=== PATIENT | female | born 1990 | race Caucasian/White ===

== ENCOUNTER 2023-11-08 09:31 | Emergency (ER) | payer OTHER, SELFPAY ==
--- NOTE | 2023-11-08 09:36 | ED.URI ---
HPI - URI/Sore Throat General Chief Complaint: Upper Respiratory Infection Stated Complaint: cough,congestion,sorethroat Time Seen by Provider: 11/08/23 09:50 Source: patient, RN notes reviewed and old records reviewed Mode of arrival: ambulatory Limitations: no limitations History of Present Illness HPI Narrative: 33-year-old female presents to the [facility] with complaints of cough, congestion and sore throat for 6 days. Reports taking Tylenol and NyQuil. Patient reports low-grade fever of 99. Onset (ago): day(s) (6) Treatments prior to arrival: cold medicine Related Data Home Medications Medication Instructions Recorded Confirmed No Home Medications 11/08/23 11/08/23 Allergies Allergy/AdvReac Type Severity Reaction Status Date / Time No Known Allergies Allergy Unverified 11/08/23 09:53 Review of Systems Review of Systems: All systems reviewed & are unremarkable except as noted in HPI and below Constitutional: Constitutional: Reports no additional constitutional complaints Eyes: Eyes: Reports no additional eye complaints ENT: Reports as per HPI and Reports sore throat Cardiovascular: Cardiovascular: Reports no additional cardiovascular complaints, Denies chest pain and Denies dyspnea Respiratory: Respiratory: Reports as per HPI, Denies chest congestion, Reports cough and Denies dyspnea Gastrointestinal: Gastrointestinal: Reports no additional gastrointestinal complaints, Denies abdominal pain, Denies nausea and Denies vomiting Musculoskeletal: Musculoskeletal: Reports no additional musculoskeletal complaints Integumentary/Breasts: Skin/Breast: Reports system reviewed and no additional complaints, except as docu Neurologic: Reports system reviewed and no additional complaints, except as documented Psychiatric: Psychiatric: Reports no additional psychiatric complaints Allergic/Immunologic: Allergic/Immunologic: Reports no additional allergic/immunologic complaints [facility] Past Medical History Medical History Elevated LDL cholesterol level Onychomycosis Family History Family History Other Hypertension Social History Social History Smoking status: Never smoker Second hand tobacco smoke exposure: No Alcohol intake: current Alcohol use details: 1 beer every other week, maybe Substance use: never Substance use type: does not use Comments At the time of my signature, I reviewed and agree with the nursing past medical, surgical, social, and family history. There is no relevant family history pertinent to the patient complaint. Exam Const: General: cooperative, healthy appearing, comfortable, no acute distress, well developed, alert and well nourished Nutritional Appearance: well nourished Orientation/consciousness: patient oriented x3 Limitations: no limitations HENMT: Head: normal to inspection Ears: hearing grossly normal bilaterally, external ears normal, TM's normal bilaterally, EAC's normal, mastoids normal and no periauricular adenopathy Face/Nose/Sinus: Normal external nose present, Normal nares present, Normal nasal mucous membranes and turbinates present, normal facial exam, sinuses nontender and face symmetric Face and sinus: normal facial exam and face symmetric Mouth: Yes Normal oral and palatal mucosa present, Yes lip normal and Yes tongue normal Throat: tonsils normal, uvula midline, postnasal drainage and no uvular edema Eyes: General: appearance normal, both eyes and all related structures Alignment and Position: alignment normal Periorbital: periorbital findings normal Pupils: Equal, round and reactive pupils present EOM: EOMs intact bilaterally Neck: Neck: normal visual inspection, full ROM, no lymphadenopathy and no meningeal signs Chest: Chest palpation & inspection: normal inspection of the glenda
[2023-11-08 09:48] VITALS: BP 108/82; PULSE 87; RESP 16; TEMP 36.8; O2SAT 99
== END 2023-11-08 10:30 | disposition home or self-care (01) ==
PROVIDERS: Emergency Provider Nurse Practitioner; PCP Internal Medicine
DX: R09.82 Postnasal drip (principal); J06.9 Acute upper respiratory infection, unspecified; Z20.822 Contact with and (suspected) exposure to COVID-19
CPT/HCPCS: 87081; 87426; 87804; 87880; 99213; G0463

== ENCOUNTER 2024-08-23 05:27 | Inpatient (IN) | payer OTHER, SELFPAY ==
[2024-08-23] VITALS (152 sets, daily range): BP systolic 101–141; BP diastolic 57–118; PULSE 42–176; RESP 16–18; TEMP 36.4–37.2; O2SAT 88–100; BMI 26.2
[2024-08-23] MEDS: LACTATED RINGERS 1,000 ML 125 ML IV CONT (05:55)
--- NOTE | 2024-08-23 06:08 | LDADM ---
This patient, Elisabeth Collins, was admitted to Labor/Delivery/Recovery 105 on 08/23/24 at 05:27. Plans for labor, pain management and were discussed with patient. Patient/family oriented to hospital policies and general routines including ID bracelet, bed and alarms, visiting hours, pain management, procedures, bathroom and other care routines, personal items, smoking policy, room service/diet and guest tray routines, security routines, and visiting hours. Patient/Family are encouraged to report perceived risks to care and to ask questions if they do not understand what they are told or what they should do. See OBIX for further documentation.
[2024-08-23 06:14] LABS: Basophils Percent Auto 0.2 % (0.2-1.2); Eosinophils Absolute Auto 0.1 K/mm3 (0-0.3); Eosinophils Percent Auto 0.9 % (0-4.4); Hematocrit 32.4 % (37.0-47.0); Hemoglobin 10.1 g/dL (12.0-15.0); Immature Granulocyte Absolute 0.05 K/mm3 (0.00-0.031); Immature Granulocyte Percent A 0.5 % (0-0.5); Lymphocytes Absolute Auto 1.99 K/mm3 (0.9-3.2); Lymphocytes Percent Auto 19.5 % (18.3-44.2); Mean Corpuscular HGB Conc 31.2 g/dl (32-36); Mean Corpuscular Hemoglobin 26.7 pg (26-34); Mean Corpuscular Volume 85.7 fl (80-100); Mean Platelet Volume 11.5 fl (7.4-10.4); Monocytes Absolute Auto 0.6 K/mm3 (0.1-0.6); Monocytes Percent Auto 5.5 % (2.6-8.5); Neutrophils Absolute Auto 7.5 K/mm3 (1.3-6.7); Neutrophils Percent Auto 73.4 % (45.5-73.1); Platelet Count Result 240 k/mm3 (150-375); Red Blood Count 3.78 M/mm3 (4.2-5.4); Red Cell Distribution Width 14.2 % (11.5-14.5); White Blood Count 10.2 K/mm3 (4.5-10.0)
--- NOTE | 2024-08-23 06:31 | WPDANESEPP ---
Anes - Eval Pre Procedure Procedure: Labor Epidural Date/Time: 08/23/24 06:31 Preop Diagnosis: Labor Pain Pre Op Diagnosis: Labor Patient Data Age: 34 Gender: F Height: 1.57 m Weight: 65 kg Last Vital Signs Pulse 82 08/23/24 05:44 BP 130/89 08/23/24 05:44 Allergies Allergy/AdvReac Type Severity Reaction Status Date / Time No Known Allergies Allergy Verified 07/24/24 15:34 Home Medications ?Medication ?Instructions ?Recorded ?Confirmed ?Type vits no.130-ferrous fum 1 tablet PO DAILY 07/24/24 07/24/24 History 27 mg iron-folic acid 800 mcg tablet ( Vitamin) Laboratory Tests 08/23/24 06:04 WBC 10.2 H K/mm3 (4.5-10.0) RBC 3.78 L M/mm3 (4.2-5.4) Hgb 10.1 L g/dL (12.0-15.0) Hct 32.4 L % (37.0-47.0) MCV 85.7 fl (80-100) MCH 26.7 pg (26-34) MCHC 31.2 L g/dl (32-36) RDW 14.2 % (11.5-14.5) Plt Count 240 k/mm3 (150-375) MPV 11.5 H fl (7.4-10.4) Immature Gran % (Auto) 0.5 % (0-0.5) Neut % (Auto) 73.4 H % (45.5-73.1) Lymph % (Auto) 19.5 % (18.3-44.2) [place] % (Auto) 5.5 % (2.6-8.5) Eos % (Auto) 0.9 % (0-4.4) Baso % (Auto) 0.2 % (0.2-1.2) Lymph # (Auto) 1.99 K/mm3 (0.9-3.2) [place] # (Auto) 0.6 K/mm3 (0.1-0.6) Eos # (Auto) 0.1 K/mm3 (0-0.3) Baso # (Auto) 0.0 K/mm3 (0.0-0.1) Abs Immat Gran (auto) 0.05 H K/mm3 (0.00-0.031) Absolute Neuts (auto) 7.5 H K/mm3 (1.3-6.7) Absolute Nucleated RBC 0.000 K/mm3 (0.0-0.012) Nucleated RBC % 0.0 % (0.0-0.2) HIV 1&2 Ab/P24 Ag 4thGn Pending Blood Type Pending Antibody Screen Pending : gestational age (. NELL 08/24/24) HCG: positive Patient hx anesthesia problems: none Family hx anesthesia problems: none Results Review: All pre-operative results and documents have been reviewed as part of the pre-operative evaluation. [facility] Past Medical History Medical History Elevated LDL cholesterol level Onychomycosis Family History Family History Mother Hypertension Grandparent Pancreatic cancer Grandparent Dementia Cerebrovascular accident Other Skin cancer Social History Social History Smoking status: Never smoker Second hand tobacco smoke exposure: No Alcohol intake: current Alcohol use details: 1 beer every other week, maybe Substance use: never Substance use type: does not use Do You Feel Safe in your Home?: Yes Lack of Transportation: No Lack of Food: Never True Current Housing: I Have Housing Concerned About Future Housing: No Difficulty Paying Gas/Electric Bills: No Difficulty Paying for Meds: No Currently Unemployed: No Education: Master's Degree or Higher Difficulty w/ Childcare or Family Care: No Spiritual care concerns: No Exam Day of Procedure 08/23/24 06:31 Patient weight: normal Heart: regular rate and rhythm Lungs: normal air movement Airway: Mallampati scale class II Neurological: alert and oriented
--- NOTE | 2024-08-23 07:00 | PM.IMHP ---
H&P: HPI History of Present Illness Date/Time: 08/23/24 07:00 Chief Complaint: Term Narrative: 34-year-old 1 para 0 whose last menstrual period was 11/13/2023, EDC is 08/24 24, confirmed by early ultrasound presents at 39 and 6 7 weeks gestation in active labor. Her has been uncomplicated. Negative for group B strep Review of Systems Review of Systems: All systems reviewed & are unremarkable except as noted in HPI and below Constitutional: Constitutional: Reports no additional constitutional complaints Eyes: Eyes: Reports no additional eye complaints ENT: Reports as per HPI and Reports sore throat Cardiovascular: Cardiovascular: Reports no additional cardiovascular complaints, Denies chest pain and Denies dyspnea Respiratory: Respiratory: Reports as per HPI, Denies chest congestion, Reports cough and Denies dyspnea Gastrointestinal: Gastrointestinal: Reports no additional gastrointestinal complaints, Denies abdominal pain, Denies nausea and Denies vomiting Musculoskeletal: Musculoskeletal: Reports no additional musculoskeletal complaints Integumentary/Breasts: Skin/Breast: Reports system reviewed and no additional complaints, except as docu Neurologic: Reports system reviewed and no additional complaints, except as documented Psychiatric: Psychiatric: Reports no additional psychiatric complaints Allergic/Immunologic: Allergic/Immunologic: Reports no additional allergic/immunologic complaints [facility] Past Medical History Medical History Elevated LDL cholesterol level Onychomycosis Family History Family History Mother Hypertension Grandparent Pancreatic cancer Grandparent Dementia Cerebrovascular accident Other Skin cancer Social History Social History Smoking status: Never smoker Second hand tobacco smoke exposure: No Alcohol intake: current Alcohol use details: 1 beer every other week, maybe Substance use: never Substance use type: does not use Do You Feel Safe in your Home?: Yes Lack of Transportation: No Lack of Food: Never True Current Housing: I Have Housing Concerned About Future Housing: No Difficulty Paying Gas/Electric Bills: No Difficulty Paying for Meds: No Currently Unemployed: No Education: Master's Degree or Higher Difficulty w/ Childcare or Family Care: No Spiritual care concerns: No Meds Home Medications and Allergies Home Medications ?Medication ?Instructions ?Recorded ?Confirmed ?Type vits no.130-ferrous fum 1 tablet PO DAILY 07/24/24 07/24/24 History 27 mg iron-folic acid 800 mcg tablet ( Vitamin) Allergies Allergy/AdvReac Type Severity Reaction Status Date / Time No Known Allergies Allergy Verified 07/24/24 15:34 Vital Signs Vital Signs - 24 hr 08/23/24 05:44 08/23/24 06:36 08/23/24 06:38 Pulse Rate 82 80 Blood Pressure 130/89 136/78 Pulse Oximetry 92 08/23/24 06:39 08/23/24 06:41 08/23/24 06:42 Pulse Rate 90 91 89 Blood Pressure 128/79 115/73 124/73 Pulse Oximetry 95 08/23/24 06:45 08/23/24 06:46 08/23/24 06:48 Pulse Rate 85 109 H Blood Pressure 124/73 130/96 H Pulse Oximetry 98 08/23/24 06:51 08/23/24 06:54 08/23/24 06:56 Pulse Rate 99 100 Blood Pressure 127/66 124/83 Pulse Oximetry 100 100 08/23/24 06:57 Pulse Rate 110 H Blood Pressure 126/76 Pulse Oximetry Exam Const: General: cooperative, healthy appearing and comfortable Nutritional Appearance: average body habitus Orientation/consciousness: oriented to person, oriented to place and oriented to time HENMT: Head: normal to inspection Resp: Effort & Inspection: normal respiratory effort Cardio: Rate: regular rate Rhythm: regular rhythm Heart sounds: S1 normal heart sound present and S2 normal heart sound present GI: Inspection: normal to inspection (Gravid soft uterus) : External Female Exam: normal external appearance Speculum Exam - Vagina: normal appearance of the vagina Speculum Exam - Cervix: normal appearance of the cervix (Cervix 7/100%/-1. AROM clear. FHTs reassuring) H&P: Results Labs Labs: Short CBC 08/23/24 Range/Units 06:04 WBC 10.2 H (4.5-10.0) K/mm3 Hgb 10.1 L (12.0-15.0) g/dL Hct 32.4 L (37.0-47.0) % Plt Count 240 (150-375) k/mm3 Assessment and Plan Assessment and plan (1) Term : Code(s): Z34.90 - Encounter for supervision of normal , unspecified, unspecified trimester Status: Acute Plan Epidural is in and working. Spontaneous vaginal delivery is expected
[2024-08-23 08:52] LABS: Syphilis IgG/IgM Antibody Negative (Negative)
[2024-08-23 09:05] LABS: HIV 1/2 Ab P24 Ag Result Negative (Negative)
[2024-08-23] MEDS: OXYTOCIN 30 UNITS/NS 500 ML 30 UNITS/500 ML BAG IV CONT (10:45)
--- NOTE | 2024-08-23 14:29 | PM.OBPNLAB ---
Pain Control Date/time seen: 08/23/24 14:29 Pain control: tolerating well and epidural Pelvic Exam Dilation (cm): 10 Effacement (%): 100 Amniotic membrane status: Leaking
--- NOTE | 2024-08-23 15:08 | PM.OBPRVD ---
OB - Vaginal Delivery Note Procedure Delivery date: 08/23/24 Induction method: None Delivery augmentation: Pitocin Delivery monitor: External FHT, External Uterine and Internal Uterine Route of delivery: Episiotomy description: None Laceration Description: Perineal - 2nd Degree Delivery repair: vicryl Specimen: No Quantitative Blood Loss (ml): 162 Anesthesia type: Epidural Disposition: Floor Narrative: The patient was admitted in active labor spontaneous rupture membranes prior to admission. Was a high leak and artificial rupture membranes of the forebag was undertaken in the a.m. Pitocin augmentation begun she had epidural anesthesia placed when she was complete she pushed delivered head spontaneously in the CARMEN position. Nuchal cord checked noted be loose x1 relieved around the occiput. Anterior posterior shoulder delivered spontaneously. Cord clamped x2 and cut passed off table given Apgars of 7 [id number]. Cord blood was drawn. Placenta delivered intact spontaneously. Twenty of Pitocin placed in the IV to help firm the uterus. After inspecting the vagina small midline laceration was noted which did not extend beyond the second-degree and was closed with layered 3-0 Vicryl QBL was 162cc. All sponge, needle, instrument counts were correct. There were no immediate complications [place] Baby Date of : 08/23/24 Time of : 14:52 Gestational Age by Date: 40 Infant gender: Female presentation: vertex position: Right Occiput Anterior Placenta delivery description: Spontaneous Cord Vessel Description: 3 Vessels, Nuchal Cord, Loose and Reduced score one minute: 7 score five minutes: 9
--- NOTE | 2024-08-23 15:11 | PM.DS ---
DS: Admitting Diagnosis Discharge Date 08/25/2024 Admitting Diagnosis Term DS: Discharge Diagnosis Discharge Diagnosis (1) Term : Code(s): Z34.90 - Encounter for supervision of normal , unspecified, unspecified trimester Status: Acute DS: Summary Hospital Course Reason for hospitalization: Patient was admitted in active labor at 40 weeks gestation. She underwent spontaneous vaginal delivery Hospital Course: Patient's hospital course. She remained afebrile. She was up, voiding difficulty, eating regular diet, ambulating, generally without complaints. Time Spent with Patient Time attestation: Total time spent providing and/or coordinating discharge services: Exam Const: General: cooperative, healthy appearing and comfortable Nutritional Appearance: average body habitus Orientation/consciousness: oriented to person, oriented to place and oriented to time HENMT: Head: normal to inspection Resp: Effort & Inspection: normal respiratory effort Cardio: Rate: regular rate Rhythm: regular rhythm Heart sounds: S1 normal heart sound present and S2 normal heart sound present GI: Inspection: normal to inspection (Gravid soft uterus) : External Female Exam: normal external appearance Speculum Exam - Vagina: normal appearance of the vagina Speculum Exam - Cervix: normal appearance of the cervix (Cervix 7/100%/-1. AROM clear. FHTs reassuring) DS: Data Data Completed and Pending Labs on day of discharge: Labs from last 24 hours 08/23/24 06:04 WBC 10.2 H RBC 3.78 L Hgb 10.1 L Hct 32.4 L MCV 85.7 MCH 26.7 MCHC 31.2 L RDW 14.2 Plt Count 240 MPV 11.5 H Immature Gran % (Auto) 0.5 Neut % (Auto) 73.4 H Lymph % (Auto) 19.5 [place] % (Auto) 5.5 Eos % (Auto) 0.9 Baso % (Auto) 0.2 Lymph # (Auto) 1.99 [place] # (Auto) 0.6 Eos # (Auto) 0.1 Baso # (Auto) 0.0 Abs Immat Gran (auto) 0.05 H Absolute Neuts (auto) 7.5 H Absolute Nucleated RBC 0.000 Nucleated RBC % 0.0 Syphilis IgG/IgM Ab Negative HIV 1&2 Ab/P24 Ag 4thGn Negative Blood Type A Positive Antibody Screen Negative Discharge Plan Discharge Attending physician on discharge: Derik Church Discharging Clinician: Derik Church Patient Disposition: Home Activity: may shower, no straining and pelvic rest Diet: heart healthy Wound Care Instructions: follow printed instructions Patient Instructions: Antibiotic Form Patient Language: [place]al[place] Stand Alone Forms: General Discharge Information Follow-up/Referrals: Derik Church MD [Physician] - Discharge Medications: Continued Vitamin 27 mg iron- 800 mcg tablet 1 tablet PO DAILY Date of admission: 08/23/24 05:27 Primary Care Provider: UNKNOWN,DOCTOR Admitting Provider: Derik Church Attending physician on admission: Derik Church Condition: Stable
[2024-08-23] MEDS: OXYTOCIN 30 UNITS/NS 500 ML 30 UNITS/500 ML BAG 125 UNITS IV CONT (17:01)
[2024-08-23] MEDS: WITCH HAZEL 40 PADS 1 PAD TOPICAL (17:29)
[2024-08-23] MEDS: BENZOCAINE 20% AER SPR (*SP) 56 GM CAN 1 SPRAY TOPICAL (17:29)
[2024-08-23] MEDS: ACETAMINOPHEN 325 MG TABLET 650 MG PO (17:29)
[2024-08-23] MEDS: IBUPROFEN 600 MG TABLET PO (17:30)
[2024-08-24 05:45] LABS: Hematocrit 27.7 % (37.0-47.0); Hemoglobin 8.4 g/dL (12.0-15.0)
--- NOTE | 2024-08-24 07:29 | P.PNOB_ITS ---
OB - PN: Subj Subjective Date/time seen: 08/24/24 07:29 Patient comments: no complaints, pain well controlled and tolerating diet [place] baby status: doing well [place] feeding status: exclusively breast feeding OB - PN: Obj Data Labs 08/24/24 05:03 Labs: Laboratory Results - last 24 hr 08/23/24 08/24/24 06:04 05:03 Hgb 8.4 L Hct 27.7 L Syphilis IgG/IgM Ab Negative HIV 1&2 Ab/P24 Ag 4thGn Negative OB - PN A/P Assessment and Plan (1) Term : Code(s): Z34.90 - Encounter for supervision of normal , unspecified, unspecified trimester Status: Acute Plan Comments: begin iron Time Spent With Patient Time: Total time spent is greater than 50% in coordination of care (as documented) at patient's floor/unit and/or counseling patient: Review of Systems 2 Review of Systems: All systems reviewed & are unremarkable except as noted in HPI and below Constitutional: Constitutional: Reports no additional constitutional complaints Eyes: Eyes: Reports no additional eye complaints ENT: Reports as per HPI and Reports sore throat Cardiovascular: Cardiovascular: Reports no additional cardiovascular complaints, Denies chest pain and Denies dyspnea Respiratory: Respiratory: Reports as per HPI, Denies chest congestion, Reports cough and Denies dyspnea Gastrointestinal: Gastrointestinal: Reports no additional gastrointestinal complaints, Denies abdominal pain, Denies nausea and Denies vomiting Musculoskeletal: Musculoskeletal: Reports no additional musculoskeletal complaints Integumentary/Breasts: Skin/Breast: Reports system reviewed and no additional complaints, except as docu Neurologic: Reports system reviewed and no additional complaints, except as documented Psychiatric: Psychiatric: Reports no additional psychiatric complaints Allergic/Immunologic: Allergic/Immunologic: Reports no additional allergic/immunologic complaints Exam 2 Const: General: cooperative, healthy appearing and comfortable Nutritional Appearance: average body habitus Orientation/consciousness: oriented to person, oriented to place and oriented to time HENMT: Head: normal to inspection Resp: Effort & Inspection: normal respiratory effort Cardio: Rate: regular rate Rhythm: regular rhythm Heart sounds: S1 normal heart sound present and S2 normal heart sound present GI: Inspection: normal to inspection (Gravid soft uterus) : External Female Exam: normal external appearance Speculum Exam - Vagina: normal appearance of the vagina Speculum Exam - Cervix: normal appearance of the cervix (Cervix 7/100%/-1. AROM clear. FHTs reassuring)
[2024-08-24] MEDS: MULTIVIT/MIN/PREN/FOL AC/IRON TABLET 1 TAB PO (07:42)
[2024-08-24] MEDS: DOCUSATE SODIUM 100 MG CAPSULE PO ×2 (07:42→18:22)
[2024-08-24] MEDS: POLYSACCHARIDE IRON COMPLEX 150 MG CAPSULE PO ×2 (07:42→18:21)
[2024-08-24 08:10] VITALS: BP 126/81; PULSE 63; RESP 16; TEMP 36.6; O2SAT 98
--- NOTE | 2024-08-24 10:30 | PC.NURSE ---
Patient called out for a latch check. Baby was able to latch independently without any assistance from mom. She is in a laid back position. Mom feels that is going very well so far. She has initial latch on tenderness that goes away with feeding. She is encouraged to call out if she has any feeding difficulty, questions or concerns. RN updated.
[2024-08-24 12:15] VITALS: BP 126/77; PULSE 84; RESP 16; TEMP 36.3; O2SAT 97
[2024-08-24] MEDS: IBUPROFEN 600 MG TABLET PO (12:52)
[2024-08-24] MEDS: DIBUCAINE 1% OINTMENT 30 GM TUBE 1 APPLIC TOPICAL (12:53)
--- NOTE | 2024-08-24 14:00 | PC.NURSE ---
Parents called out with concerns for baby's skin condition. Baby appears to have generalized rash. Discussed with parents that this is a normal occurrence for many newborns. Mom also latched baby to the right breast in cradle hold after we talked. The latch appears optimal, mom does have some bruising on the nipple and soreness with latch. Baby is able to latch independently and maintain the latch well. RN updated.
[2024-08-24 19:00] VITALS: BP 115/85; PULSE 80; RESP 16; TEMP 36.5; O2SAT 96
--- NOTE | 2024-08-25 05:40 | P.PNOB_ITS ---
OB - PN: Subj Subjective Date/time seen: 08/25/24 05:40 Patient comments: no complaints, pain well controlled and tolerating diet [place] baby status: doing well OB - PN: Obj Data Labs 08/24/24 05:03 Labs: Laboratory Results - last 24 hr 08/24/24 05:03 Hgb 8.4 L Hct 27.7 L OB - PN A/P Assessment and Plan (1) Term : Code(s): Z34.90 - Encounter for supervision of normal , unspecified, unspecified trimester Status: Acute Plan home Time Spent With Patient Time: Total time spent is greater than 50% in coordination of care (as documented) at patient's floor/unit and/or counseling patient: Review of Systems 2 Review of Systems: All systems reviewed & are unremarkable except as noted in HPI and below Constitutional: Constitutional: Reports no additional constitutional complaints Eyes: Eyes: Reports no additional eye complaints ENT: Reports as per HPI and Reports sore throat Cardiovascular: Cardiovascular: Reports no additional cardiovascular complaints, Denies chest pain and Denies dyspnea Respiratory: Respiratory: Reports as per HPI, Denies chest congestion, Reports cough and Denies dyspnea Gastrointestinal: Gastrointestinal: Reports no additional gastrointestinal complaints, Denies abdominal pain, Denies nausea and Denies vomiting Musculoskeletal: Musculoskeletal: Reports no additional musculoskeletal complaints Integumentary/Breasts: Skin/Breast: Reports system reviewed and no additional complaints, except as docu Neurologic: Reports system reviewed and no additional complaints, except as documented Psychiatric: Psychiatric: Reports no additional psychiatric complaints Allergic/Immunologic: Allergic/Immunologic: Reports no additional allergic/immunologic complaints Exam 2 Const: General: cooperative, healthy appearing and comfortable Nutritional Appearance: average body habitus Orientation/consciousness: oriented to person, oriented to place and oriented to time HENMT: Head: normal to inspection Resp: Effort & Inspection: normal respiratory effort Cardio: Rate: regular rate Rhythm: regular rhythm Heart sounds: S1 normal heart sound present and S2 normal heart sound present GI: Inspection: normal to inspection (Gravid soft uterus) : External Female Exam: normal external appearance Speculum Exam - Vagina: normal appearance of the vagina Speculum Exam - Cervix: normal appearance of the cervix (Cervix 7/100%/-1. AROM clear. FHTs reassuring)
[2024-08-25 07:33] VITALS: BP 115/71; PULSE 73; RESP 14; TEMP 36.6; O2SAT 98
[2024-08-25] MEDS: MULTIVIT/MIN/PREN/FOL AC/IRON TABLET 1 TAB PO (10:37)
[2024-08-25] MEDS: DOCUSATE SODIUM 100 MG CAPSULE PO (10:37)
[2024-08-25] MEDS: POLYSACCHARIDE IRON COMPLEX 150 MG CAPSULE PO (10:37)
[2024-08-26 11:38] VITALS: BP 128/88; PULSE 85; RESP 18; TEMP 36.8; O2SAT 99
== END 2024-08-25 11:48 | disposition home or self-care (01) | DRG 807 ==
LOC: ANHLDR 15:14 → ANHOB2 18:06
PROVIDERS: Admitting Provider Obstetrics & Gynecology; Visit Provider Obstetrics & Gynecology
DX: O69.81X0 Labor and delivery complicated by cord around neck, without compression, not applicable or unspecified (principal); Z37.0 Single live birth; Z3A.39 39 weeks gestation of pregnancy; O70.1 Second degree perineal laceration during delivery
CPT/HCPCS: 36415; 85014; 85018; 85025; 86593; 86703; 86850; 86900; 86901; A9270; G0432; J2590; J2795; J7120

== ENCOUNTER 2024-09-23 14:11 | Outpatient (CLI) | payer OTHER, SELFPAY ==
--- NOTE | 2024-09-23 14:15 | PC.NURSE ---
In- 1400 Out- 1530 Reason for visit: Slow to gain, weighted feed, pump set up History: Elisabeth had a normal and uncomplicated vaginal delivery. Baby exclusively breastfed after delivery. She experienced sore nipples that healed well. She has not used her breast pump yet and would like assistance setting it up. Infant History: Lauryn was a term delivery. She was well and without any complications. She was a little slow to regain her weight, returning to weight at 15 days old. The doctor ordered some supplementation after , either pumped milk or formula. Mom hadn't used her pump at all yet and so parents chose to supplement with Similac. At her one month pattern drum maker appointment she had not gained quite as much as expected. Dr. Mejia recommended getting a weighted feed to see how much milk baby was transferring at breast and to continue with supplementation after . Observations: Mother allows baby to self attach and baby maintains the latch well, coming off a few times during the feeding and latching again easily. Mom says that when baby is more frantic and hungry she struggles more with latching but that overall latching goes well. Baby suckled continuously with only a little encouragement needed from mom. After the , dad fed the bottle while mom pumped. Baby was still fussy after the feeding and spit up several times. Parents state that they have discussed the spit up with the doctor and they have been assured it is normal. Mom states that she doesn't always get a burp from baby and they try to hold her upright after feedings. Encouraged them that some babies spit up more that others and trying for a good burp can sometimes help. Parents can always consult back with the pattern drum maker if there are any changes with baby's spit up or if it gets worse. Pump set up: Elisabeth brought her Spectra pump and we fitted her with the 24mm flange. We reviewed basic pump function and modes. She should use the highest comfortable suction setting, gradually increasing as tolerated. Recommended she pump both breast for 15 minutes after her first of the day when she will likely have the most milk. Encouraged her that even if she doesn't get much volume with the pump, she is providing the needed stimulation for her body to increase supply. She can freeze her milk for later use or use it to supplement baby after breast feedings in place of formula. weight: 6 # 4 Last weight: 6 # 14 (1 month visit with pattern drum maker) Pre-feed weight: 6 # 15 3163g Post-feed weight: 3204g = 41ml transfer from Left breast in 17 minutes 3227g = 23ml transfer from Right breast in 21 minutes Total transfer = 64ml (2.1 oz) in 38 minutes Total volume needed if 8 feedings/day = 77ml (2.6 oz) per feeding 616ml (20.6 oz) per day Supplementation volume of 120ml (4 oz) per day is recommended Plan of Care: If a typical feeding at breast is 64ml, then baby needs to take an additional 120ml per day of supplementation (formula or pumped breast milk). Mom is already giving an additional 30ml (1 oz) 4 times a day after which equals the 120ml of additional volume baby needs daily. Parents are encouraged to continue with this supplementation plan as it meets baby's current need for additional nutriment. Mom is going to start pumping daily to increase her milk supply. As her supply increases, the need for additional supplementation should decrease. Follow up plans: Continue to follow up with Dr. Mejia as scheduled. Follow the feeding plan discussed today. Contact the office for any further questions or concerns. Elisabeth is welcome to make another appointment for a weighted feed at any time.
== END 2024-09-23 14:12 | disposition home or self-care (01) ==
LOC: ANHOBOP 14:12
PROVIDERS: Visit Provider Pediatrics
DX: Z39.1 Encounter for care and examination of lactating mother (principal)
CPT/HCPCS: 99203; G0463